=== PATIENT | female | born 1985 ===

== ENCOUNTER 2024-03-19 09:01 | Outpatient (OUT) | payer SELFPAY ==
--- NOTE | 2024-03-19 09:03 | XR_ITS ---
The [address] [address] Patient Name: LYNDA RODRIGUEZ MRN: [id number] date: 1985 Sex: F Assigned Patient Location: [facility] Current Patient Location: Accession/Order Number: [id number] Exam Date: 03/19/2024 09:03 Report Date: 03/21/2024 06:13 At the request of: ERNIE BURTON Procedure: XR foot RT min 3V PROCEDURE: XR foot RT min 3V HISTORY: Right Foot Pain COMPARISON: None. FINDINGS: BONES:No fracture, acute abnormality, or significant arthropathy. SOFT TISSUES:No visible soft tissue swelling. EFFUSION:None visible. OTHER: Negative. XR/XR foot RT min 3V IMPRESSION: 1. No abnormal or suspicious findings to account for patient's symptoms. Electronically authenticated by: JENNYFER AGUILAR Date: 03/21/2024 06:13
== END 2024-03-19 09:02 | disposition home or self-care (01) ==
LOC: RAD 09:01
PROVIDERS: Visit Provider Podiatrist Foot & Ankle Surgery
DX: M79.671 Pain in right foot (principal)
CPT/HCPCS: 73630